=== PATIENT | female | born 1985 | race Caucasian/White ===

== ENCOUNTER 2021-06-05 03:50 | Emergency (ER) | payer SELFPAY ==
[~2021-06-05] VITALS: Ht 160 cm; Wt 110.0 kg
[2021-06-05 03:57] VITALS: BP 149/101
--- NOTE | 2021-06-05 04:03 | NUR ---
PT TAKEN TO BED 12 AND PLACED IN GOWN.
--- NOTE | 2021-06-05 04:04 | NUR ---
Ambulatory to bed 12.
--- NOTE | 2021-06-05 04:06 | NUR ---
Patient BIB by family from home. C/O vaginal bleeding x 2 days. Patient reported, had vaginal bleeding since Tuesday. LMP February,. Patient seen by MEDICAL EDUCATION COORDINATOR yesterday- reported -no heart sound. .
--- NOTE | 2021-06-05 04:13 | NUR ---
Dr. Noble at bedside to exam patient.
--- NOTE | 2021-06-05 04:13 | NUR ---
Dr. Noble examining patient.
--- NOTE | 2021-06-05 04:42 | NUR ---
Blood for labwork drawn from right arm per RN. Patient tolerated well.
[2021-06-05 04:50] LABS: BASOPHILS # (AUTO) 0.1 K/uL (0.00-0.22); BASOPHILS % (AUTO) 0.7 % (0.0-2.0); EOSINOPHILS # (AUTO) 0.5 K/uL (0-0.4); EOSINOPHILS % (AUTO) 6.4 % (0.0-4.0); HEMATOCRIT 37.5 % (36-48); HEMOGLOBIN 12.5 g/dL (12.0-16.0); LYMPHOCYTES # (AUTO) 1.2 K/uL (2.5-16.5); MEAN CORPUSCULAR HEMOGLOBIN 28 pg (27-31); MEAN CORPUSCULAR HGB CONC 34 g/dL (33-37); MEAN CORPUSCULAR VOLUME 83.2 fL (80-94); MONOCYTES # (AUTO) 0.5 K/uL (0.8-1.0); NEUTROPHILS # (AUTO) 5.4 K/uL (1.8-7.7); NEUTROPHILS % (AUTO) 70.9 % (42.2-75.2); PLATELET COUNT (AUTO) 241 K/uL (140-450); RED BLOOD CELL COUNT(AUTO) 4.51 MIL/uL (4.20-5.40); RED CELL DISTRIBUTION WIDTH 15.5 % (11.6-13.7); WHITE BLOOD COUNT (AUTO) 7.6 K/uL (4.8-10.8)
[2021-06-05 05:13] LABS: CARBON DIOXIDE 27.5 mmol/L (21-32)
[2021-06-05 05:20] LABS: APPEARANCE,URINE CLOUDY (CLEAR); BILIRUBIN,URINE 1+ (NEGATIVE); BLOOD, URINE 3+ (NEGATIVE); COLOR,URINE RED (YELLOW); LEUKOCYTE ESTERASE ,URINE NEGATIVE (NEGATIVE); NITRITE, URINE NEGATIVE (NEGATIVE); UGLUCOSE NEGATIVE (NEGATIVE)
[2021-06-05 05:51] LABS: RBC,URINE 20-50 /HPF (0-5); WBC,URINE 0-5 /HPF (0-5)
[2021-06-05 06:10] VITALS: BP 134/92
--- NOTE | 2021-06-05 06:10 | NUR ---
Patient discharged with v/s stable. Written and verbal after care instructions given and explained. Patient verbalized understanding. Ambulatory with steady gait. All questions addressed prior to discharge. Advised to follow up with PMD.
[2021-06-05 06:26] LABS: ANION GAP 12.9 (8-16); POTASSIUM 3.4 mmol/L (3.5-5.1)
== END 2021-06-05 06:10 | disposition home or self-care (01) ==
LOC: MED 03:50
DX: O20.0 Threatened abortion (principal); O10.911 Unspecified pre-existing hypertension complicating pregnancy, first trimester; Z3A.11 11 weeks gestation of pregnancy; Z88.0 Allergy status to penicillin
CPT/HCPCS: 36415; 80048; 81001; 81025; 84702; 85025; 86886; 86900; 86901; 87086; 99284

== ENCOUNTER 2021-09-02 23:54 | Emergency (ER) | payer SELFPAY ==
[~2021-09-02] VITALS: Ht 160 cm; Wt 67.1 kg
[2021-09-03 00:16] VITALS: BP 143/83
--- NOTE | 2021-09-03 00:40 | NUR ---
Patient ambulated to bed 12.
--- NOTE | 2021-09-03 00:44 | NUR ---
ER MD AT BEDSIDE EXAMINING
--- NOTE | 2021-09-03 00:47 | NUR ---
Dr. Becker examining patient.
--- NOTE | 2021-09-03 00:56 | NUR ---
35 Y/O FEMALE BIBS FROM HOME, C/O rash SINCE TUESDAY APPROX 1600. Patient had skin rash and itchy today, no SOB. ~5-6 weeks, LMP July 19, 2021. [id number]- no vaginal bleeding. UNLABORED BREATHING, AIRWAY PATENT, NO SWELLING OR WHEEZING. PT DESCRIBES RASH RED, AND BLOTCHY OVER ARMS, BACK, LEGS, AND FACE. PMHx: HTN
[2021-09-03] MEDS: FAMOTIDINE 20 MG/2 ML VIAL IVP ONE (01:16)
[2021-09-03] MEDS: NACL 0.9% 1,000 ML IV ONE (01:17)
[2021-09-03 02:46] LABS: APPEARANCE,URINE SL CLOUDY (CLEAR); BILIRUBIN,URINE 1+ (NEGATIVE); BLOOD, URINE 1+ (NEGATIVE); COLOR,URINE YELLOW (YELLOW); LEUKOCYTE ESTERASE ,URINE TRACE (NEGATIVE); NITRITE, URINE NEGATIVE (NEGATIVE); PH,URINE 5.5 (5.0-9.0); UGLUCOSE NEGATIVE (NEGATIVE)
[2021-09-03] MEDS ORDERED: DIPH25TA53 PO (03:33)
[2021-09-03] MEDS ORDERED: PRED20TA5 PO (03:33)
[2021-09-03] MEDS ORDERED: FAMO-90 PO (03:33)
[2021-09-03] MEDS ORDERED: NITR100C7 PO (03:34)
--- NOTE | 2021-09-03 03:40 | NUR ---
MERYL ALVAREZ AT [facility] DISCUSSING PT RESULTS
--- NOTE | 2021-09-03 03:42 | NUR ---
Patient discharged with v/s stable. Written and verbal after care instructions given and explained. Patient alert, oriented and verbalized understanding of instructions. Ambulatory with steady gait. All questions addressed prior to discharge. ID band removed. Patient advised to follow up with PMD. Rx of BENADRYL, PEPCID, DELTASONE, AND MACROBID 100MG CAP given. Patient educated on indication of medication including possible reaction and side effects. Opportunity to ask questions provided and answered. VSS, A/OX4, UNLABORED BREATHING, AMBULATORY, AND CALM DEMEANOR.
[2021-09-03] MEDS: diphenhydrAMINE 50 MG/ML VIAL IVP ONE (03:45)
[2021-09-03 03:46] VITALS: BP 143/83
== END 2021-09-03 03:46 | disposition home or self-care (01) ==
LOC: MED 23:54
DX: O98.811 Other maternal infectious and parasitic diseases complicating pregnancy, first trimester (principal); R82.71 Bacteriuria; I10 Essential (primary) hypertension; Z3A.01 Less than 8 weeks gestation of pregnancy; Z88.0 Allergy status to penicillin; Z79.899 Other long term (current) drug therapy
CPT/HCPCS: 81001; 81025; 87086; 96361; 96374; 96375; 99284; J1200; J3490; J7030

== ENCOUNTER 2023-10-01 16:15 | Inpatient (IN) | payer OTHER ==
[~2023-10-01] VITALS: Ht 162.6 cm; Wt 113.4 kg
[2023-10-01 17:00] VITALS: BP 135/91; PULSE 104; RESP 18; TEMP 98.1
[2023-10-01 17:08] LABS: BASOPHILS % (AUTO) 0.4 % (0.0-2.0); EOSINOPHILS # (AUTO) 0.2 K/uL (0-0.4); EOSINOPHILS % (AUTO) 3.4 % (0.0-4.0); HEMATOCRIT 35.8 % (36-48); HEMOGLOBIN 11.7 g/dL (12.0-16.0); LYMPHOCYTES # (AUTO) 1.3 K/uL (2.5-16.5); LYMPHOCYTES % (AUTO) 16.9 % (20.5-51.1); MEAN CORPUSCULAR HEMOGLOBIN 27 pg (27-31); MEAN CORPUSCULAR HGB CONC 33 g/dL (33-37); MEAN CORPUSCULAR VOLUME 82.9 fL (80-94); MONOCYTES # (AUTO) 0.4 K/uL (0.8-1.0); MONOCYTES % (AUTO) 5.4 % (1.7-9.3); NEUTROPHILS # (AUTO) 5.5 K/uL (1.8-7.7); NEUTROPHILS % (AUTO) 73.9 % (42.2-75.2); PLATELET COUNT (AUTO) 225 K/uL (140-450); RED BLOOD CELL COUNT(AUTO) 4.32 MIL/uL (4.20-5.40); RED CELL DISTRIBUTION WIDTH 16.2 % (11.6-13.7); WHITE BLOOD COUNT (AUTO) 7.4 K/uL (4.8-10.8)
[2023-10-01 17:32] LABS: ALBUMIN 2.8 g/dL (3.4-5.0); ANION GAP 10.8 (8-16); CALCIUM 9.3 mg/dL (8.5-10.1); CREATININE 0.9 mg/dL (0.6-1.3); POTASSIUM 3.8 mmol/L (3.5-5.1); TOTAL BILIRUBIN 0.2 mg/dL (0.0-1.0); TOTAL PROTEIN, SERUM 6.8 g/dL (6.4-8.2); URIC ACID 5.6 mg/dL (2.6-7.2)
[2023-10-01 17:34] LABS: APPEARANCE,URINE CLEAR (CLEAR); BILIRUBIN,URINE NEGATIVE (NEGATIVE); BLOOD, URINE TRACE-I (NEGATIVE); COLOR,URINE YELLOW (YELLOW); LEUKOCYTE ESTERASE ,URINE 3+ (NEGATIVE); NITRITE, URINE NEGATIVE (NEGATIVE); PH,URINE 6.5 (5.0-9.0); PROTEIN,URINE NEGATIVE (NEGATIVE); UGLUCOSE NEGATIVE (NEGATIVE); UROBILINOGEN,URINE 0.2 EU/dL (0.2 - 1)
[2023-10-01 17:50] LABS: RBC,URINE 0-5 /HPF (0-5)
[2023-10-01 17:51] LABS: BACTERIA,URINE FEW /HPF (None Seen); SQUAMOUS EPITHELIAL CELL,UR 0-3 (FEW) /LPF (0-3 (FEW))
[2023-10-01 18:09] LABS: INR 0.87 (0.8-1.2); PARTIAL THROMBOPLASTIN TIME 26.1 secs (22-35.6); PROTHROMBIN TIME 9.2 secs (10.8-13.4)
[2023-10-01] MEDS ORDERED: LIDOCAINE MPF 1% 10 MG/ML VIAL INJ ONE (18:55)
[2023-10-01] MEDS ORDERED: COMMUNICATION ORDER MC ONE (19:20)
[2023-10-01] MEDS ORDERED: cefTRIAXone 1,000 MG VIAL IM ONE (19:30)
[2023-10-02] MEDS ORDERED: LACTATED RINGERS 500 ML IV ONE (07:40)
[2023-10-02] MEDS: LACTATED RINGERS 1,000 ML IV SCH (08:53)
[2023-10-02] MEDS ORDERED: NIFEdipine 10 MG CAPLF PO SCH (09:00)
[2023-10-02] MEDS ORDERED: ceFAZolin 2,000 MG VIAL ONE (09:25)
[2023-10-02] MEDS ORDERED: CITRIC ACID/SODIUM CITRATE 30 ML UDC PO ONE (09:25)
[2023-10-02] MEDS ORDERED: MORPHINE PRES FREE 10 MG/10 ML AMP IV ONE (13:07)
[2023-10-02 13:45] LABS: URINE TOTAL PROTEIN 2.6 mg/dL (0-12)
[2023-10-02] MEDS: OXYTOCIN/0.9 % SODIUM CHLORIDE 500 ML IV ONE (15:11)
[2023-10-02] MEDS ORDERED: diphenhydrAMINE 50 MG/ML VIAL IVP PRN (15:35)
[2023-10-02] MEDS ORDERED: NALOXONE 0.4 MG/ML VIAL IVP PRN ×3 (15:35)
[2023-10-02] MEDS ORDERED: KETOROLAC 30 MG/ML VIAL IVP PRN (17:00)
[2023-10-02] MEDS ORDERED: MEASLES, MUMPS, AND RUBELLA 1 VIAL SQVAC ONE (17:00)
[2023-10-02] MEDS ORDERED: oxyCODONE/APAP 5/325 MG 1 TAB TAB PO PRN (17:00)
[2023-10-02] MEDS ORDERED: METHYLERGONOVINE 0.2 MG/ML AMP IM PRN (17:00)
[2023-10-02 17:23] LABS: URINE TPRO CREAT RATIO 0.1 (0-0.20)
[2023-10-02] MEDS: ONDANSETRON 4 MG/2 ML VIAL IVP PRN (17:31)
[2023-10-02] MEDS ORDERED: KETOROLAC 30 MG/ML VIAL IM/IVP SCH (18:00)
[2023-10-02] MEDS ORDERED: OXYTOCIN/0.9 % SODIUM CHLORIDE 500 ML IV ONE (19:06)
[2023-10-02] MEDS: OXYTOCIN/0.9 % SODIUM CHLORIDE 500 ML IV SCH (20:20)
[2023-10-02] MEDS ORDERED: MEDS-TO-BEDS MC SCH (21:00)
[2023-10-02] MEDS: KETOROLAC 30 MG/ML VIAL IM/IVP SCH (22:09)
[2023-10-03] MEDS: LACTATED RINGERS 1,000 ML IV ONE (00:25)
[2023-10-03 07:24] LABS: BASOPHILS % (AUTO) 0.2 % (0.0-2.0); EOSINOPHILS % (AUTO) 0.4 % (0.0-4.0); HEMATOCRIT 30.3 % (36-48); HEMOGLOBIN 10.1 g/dL (12.0-16.0); LYMPHOCYTES % (AUTO) 10.2 % (20.5-51.1); MEAN CORPUSCULAR HEMOGLOBIN 28 pg (27-31); MEAN CORPUSCULAR HGB CONC 33 g/dL (33-37); MEAN CORPUSCULAR VOLUME 83.5 fL (80-94); MONOCYTES # (AUTO) 0.7 K/uL (0.8-1.0); MONOCYTES % (AUTO) 7.2 % (1.7-9.3); NEUTROPHILS # (AUTO) 8.2 K/uL (1.8-7.7); PLATELET COUNT (AUTO) 192 K/uL (140-450); RED BLOOD CELL COUNT(AUTO) 3.63 MIL/uL (4.20-5.40); RED CELL DISTRIBUTION WIDTH 16.5 % (11.6-13.7)
[2023-10-03] MEDS: SIMETHICONE 80 MG TAB.CHEW PO PRN (12:17)
[2023-10-03] MEDS: oxyCODONE/APAP 5/325 MG 1 TAB TAB PO PRN (21:13)
[2023-10-03] MEDS: bisacodyL 5 MG TABEC PO PRN (21:15)
[2023-10-03] MEDS ORDERED: KETOROLAC 30 MG/ML VIAL IM/IVP SCH (22:30)
[2023-10-04] MEDS ORDERED: CAMERA MC ONE (03:28)
[2023-10-04] MEDS: IBUPROFEN 800 MG TAB PO PRN (14:23)
== END 2023-10-04 15:50 | disposition home or self-care (01) | DRG 539 ==
LOC: MLD 16:15 → OBSVTOIN 10-02 08:15 → MFCC 10-02 17:05
PROVIDERS: ADMIT Obstetrics & Gynecology; ATTEND Obstetrics & Gynecology
PROC: 0UB70ZZ Excision of Bilateral Fallopian Tubes, Open Approach (ICD-10-PCS; principal; 2023-10-04)
PROC: 10D00Z1 Extraction of Products of Conception, Low, Open Approach (ICD-10-PCS; 2023-10-04)
DX: O34.211 Maternal care for low transverse scar from previous cesarean delivery (principal); O13.3 Gestational [pregnancy-induced] hypertension without significant proteinuria, third trimester; O24.419 Gestational diabetes mellitus in pregnancy, unspecified control; O36.8130 Decreased fetal movements, third trimester, not applicable or unspecified; Z30.2 Encounter for sterilization; Z37.0 Single live birth; Z3A.39 39 weeks gestation of pregnancy
CPT/HCPCS: G0378 ×8; 36415; 76805; 76819; 80053; 81001; 82570; 84550; 85025; 85384; 85610; 85730; 86592; 86886; 86900; 86901; 87086; 88302; 90715; J0696; J1885; J2270; J2405; J2590; J7060; J7120; Q0092